=== PATIENT | male | born 1935 | race Caucasian/White ===

== ENCOUNTER → 2018-02-11 | Outpatient (CLI) | payer MEDICARE, OTHER ==
--- NOTE | 2018-02-11 15:20 | RADIOLOGY REPORT (SQ) ---
EXAM DESCRIPTION: DUPLEX ART/VIOLET FLOW COMPLETE COMPLETED DATE/TIME: 02/11/2018 10:46 am REASON FOR STUDY: CKD III (N18.3), HTN (I10) N18.3 CHRONIC KIDNEY DISEASE, STAGE 3 (MODERATE) COMPARISON: Bilateral renal ultrasound 10/13/2008 TECHNIQUE: Realtime and static grayscale images acquired. Selected color Doppler, velocities and spe ctral images recorded. LIMITATIONS: Unable to visualize the renal arteries as they arise off the aorta due to midline bowel gas FINDINGS: RIGHT KIDNEY: RENAL ARTERY VELOCITIES: At the hilum, 46 cm/sec. Segmental artery velocity 50 cm/sec. RENAL VEIN: Color doppler flow present, patent. VELOCITY RATIO: 0.64. Normal waveforms. KIDNEY: Right kidney is 8 cm in length, length is distorted by a 13 cm right mid to lower pole renal cyst. This cyst measured 5.5 cm in 2007. No right hydronephrosis. LEFT KIDNEY: RENAL ARTERY VELOCITIES: At the hilum, 39.2 cm/sec. Segmental artery velocity 32.6 cm/sec. RENAL VEIN: Color doppler flow present, patent. VELOCITY RATIO: 0.54. Normal waveforms. KIDNEY: 11 cm in length, with a 2 cm midpole cyst. BLADDER: Decompressed, not well seen. Prostate 4 cm in diameter OTHER: No other significant finding. IMPRESSION: NO DOPPLER EVIDENCE OF HEMODYNAMICALLY SIGNIFICANT RENAL ARTERY STENOSIS. NO HYDRONEPHROSIS OR HYDROURETER IDENTIFIED 13 CM CYST RIGHT MID TO LOWER POLE KIDNEY. COMMENT: NORMAL RENAL ARTERY/AORTA VELOCITY RATIO IS LESS THAN OR EQUAL TO 3.5. TECHNICAL DOCUMENTATION: JOB ID: [id number] [employer]- All Rights Reserved Reading location - IP/workstation name: [email or web address]
== END ==
LOC: RAD 08:54
PROVIDERS: ATTEND Internal Medicine Nephrology
DX: I12.9 Hypertensive chronic kidney disease with stage 1 through stage 4 chronic kidney disease, or unspecified chronic kidney disease (principal); N18.3 Chronic kidney disease, stage 3 (moderate)
CPT/HCPCS: 93975

== ENCOUNTER → 2019-08-28 | Outpatient (CLI) | payer MEDICARE, OTHER ==
[2019-09-01 09:37] LABS: EPINEPHRINE 173 pg/mL (0-62); NOREPINEPHRINE 1711 pg/mL (0-874)
[2019-09-01 09:43] LABS: DOPAMINE 72 pg/mL (0-48)
== END ==
LOC: OD 11:05
PROVIDERS: ATTEND Internal Medicine Nephrology
DX: I12.9 Hypertensive chronic kidney disease with stage 1 through stage 4 chronic kidney disease, or unspecified chronic kidney disease (principal); N18.3 Chronic kidney disease, stage 3 (moderate); R80.9 Proteinuria, unspecified; N40.0 Benign prostatic hyperplasia without lower urinary tract symptoms
CPT/HCPCS: 36415; 82383; 83835

== ENCOUNTER → 2019-09-08 | Outpatient (CLI) | payer MEDICARE, OTHER ==
--- NOTE | 2019-09-08 12:18 | RADIOLOGY REPORT (SQ) ---
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 TECHNIQUE: CT scan of the abdomen performed without intravenous contrast and without oral contrast. Images reviewed with lung, soft tissue, and bone windows. Reconstructed coronal and sagittal MPR im ages reviewed. All images stored on PACS. All CT scanners at this facility use dose modulation, iterative reconstruction, and/or weight based d osing when appropriate to reduce radiation dose to as low as reasonably achievable (ALARA). [facility]: Dose Right [facility]: CareDose [facility]: Dose Right [facility]: Teradose 4D [facility]: Smart Essential Testing RADIATION DOSE: CT Rad equipment meets quality standard of care and radiation dose reduction techniq ues were employed. CTDIvol: 6.6 mGy. DLP: 215 mGy-cm.mGy. LIMITATIONS: None. FINDINGS: LOWER CHEST: Coronary atherosclerosis. Thoracic aortic atherosclerosis. No acute finding s. NONCONTRASTED LIVER, SPLEEN, ADRENALS: Evaluation limited by lack of IV contrast. No identified sign ificant masses. PANCREAS: No masses. No peripancreatic inflammatory changes. GALLBLADDER: Decompressed gallbladder. Cholelithiasis. Mild wall thickening likely secondary to dec ompressed state. No pericholecystic inflammation. RIGHT KIDNEY AND URETER: Indeterminate 15 mm anterior interpolar lesion (Hounsfield units 50). 12 cm exophytic right renal cyst. Punctate nonobstructing stones versus vascular calcifications. No hydr onephrosis. LEFT KIDNEY AND URETER: Indeterminate hyperdense upper pole exophytic lesion measuring 14 mm. Additi onal exophytic low-density cysts noted. Nonobstructing stone measuring 9 mm. No hydronephrosis. AORTA AND RETROPERITONEUM: Aortoiliac atherosclerosis without aneurysm. Evidence of prior bilateral renal artery stent placement. Evaluation of patency cannot be performed on this noncontrast exam. P artially visualized left common iliac stent. No retroperitoneal mass or hemorrhage. BOWEL AND PERITONEAL CAVITY: No evidence of intestinal obstruction. No focal bowel wall thickening. Scattered colonic diverticula. Evidence of prior right hemicolectomy with chain staple line in the right upper quadrant. No free fluid or intraperitoneal gas. APPENDIX: Absent. ABDOMINAL WALL: Fat and small bowel containing midline hernia with a wide mouth aperture measuring 4. 2 cm. No focal masses. BONES: No acute bony abnormality. No suspicious osseous lesions. Median sternotomy changes. Thorac olumbar spondylosis with multilevel chronic Modic endplate change. OTHER: No other significant finding. IMPRESSION: 1. Hyperdense bilateral renal lesions, possibly hemorrhagic or proteinaceous cyst alth ough technically indeterminate on this single phase scan. Consider renal protocol MRI or CT for comp lete characterization. 2. Nonobstructing bilateral renal stones, largest on the left measuring 9 mm. 3. 12 cm right renal cyst. 4. Evidence of bilateral renal artery stent placement. Patency cannot be evaluated on this exam. 5. Additional chronic findings as above. TECHNICAL DOCUMENTATION: JOB ID: [id number] Quality ID # [id number]: Final reports with documentation of one or more dose reduction techniques (e.g., Au tomated exposure control, adjustment of the mA and/or kV according to patient size, use of iterative reconstruction technique) 2010 [employer]- All Rights Reserved Reading location - IP/workstation name: [email or web address]
== END ==
LOC: RAD 07:01
PROVIDERS: ATTEND Internal Medicine Nephrology
DX: I12.9 Hypertensive chronic kidney disease with stage 1 through stage 4 chronic kidney disease, or unspecified chronic kidney disease (principal); N18.3 Chronic kidney disease, stage 3 (moderate); N40.0 Benign prostatic hyperplasia without lower urinary tract symptoms; R82.5 Elevated urine levels of drugs, medicaments and biological substances
CPT/HCPCS: 74150